=== PATIENT | female | born 1980 | race Two or more races ===

== ENCOUNTER 2020-10-07 00:09 | Emergency (ER) | payer OTHER ==
[~2020-10-07] VITALS: Ht 165.1 cm; Wt 165.9 kg
[2020-10-07] MEDS ORDERED: KETOROLAC 60 MG/2 ML VIAL. IM ONE (02:00)
--- NOTE | 2020-10-07 02:23 | RAD ---
XR KNEE 3 VIEWS_RT DATE: 10/07/2020 2:16 AM INDICATION: knee pain COMPARISON: None. FINDINGS: Bones: There is no evidence of acute fracture or dislocation. Joints: Mild tricompartmental degenerative changes There is no joint effusion. Miscellaneous: None. IMPRESSION: 1. No acute osseous abnormality. 2. Mild tricompartmental degenerative changes Electronically signed by: Jayy Fisher MD (10/07/2020 2:20 AM) ANASTASIYA
--- NOTE | 2020-10-07 02:30 | PHYS DOC ---
Past Medical History Past Surgical History: Other Additional Past Surgical Histo: OVARIAN CYST REMOVED FALLOPIAN TUBE & OVARY Smoking Status: Never Smoker Alcohol Use: Occasionally General Adult EDM: Chief Complaint: LOWER EXTREMITY SWELLING HPI: HPI: Patient is a 40 year old female presents with a chief complaint of right lower extremity pain. Patient states on she fell onto her right knee. States she had minimal discomfort on the days following. Patient states on Saturday pain increased in her right knee and has progressive become worse. . Patient Patients pain in her knee popliteal area with radiation up to her thigh. Review of Systems: Review of Systems: Constitutional: Denies fever or chills. [] Eyes: Denies change in visual acuity. [] HENT: Denies nasal congestion or sore throat. [] Respiratory: Denies cough or shortness of breath. [] Cardiovascular: Denies chest pain or edema. [] GI: Denies abdominal pain, nausea, vomiting, bloody stools or diarrhea. [] : Denies dysuria. [] Musculoskeletal: Denies back pain Positive joint pain. [Positive knee pain] Integument: Denies rash. [] Neurologic: Denies headache, focal weakness or sensory changes. [] Endocrine: Denies polyuria or polydipsia. [] Lymphatic: Denies swollen glands. [] Psychiatric: Denies depression or anxiety. [] Heart Score: C/O Chest Pain: N/A Risk Factors: Risk Factors: DM, Current or recent (<one month) smoker, HTN, HLP, family history of CAD, obesity. Risk Scores: Score 0 - 3: 2.5% MACE over next 6 weeks - Discharge Home Score 4 - 6: 20.3% MACE over next 6 weeks - Admit for Clinical Observation Score 7 - 10: 72.7% MACE over next 6 weeks - Early Invasive Strategies Current Medications: Current Medications Medications (Trade) Dose Ordered Sig/Abiel Start Time Stop Time Status Last Admin Dose Admin Ketorolac Tromethamine (Toradol Im) 60 mg 1X ONCE 10/07/20 02:00 10/07/20 02:03 DC Allergies: Allergies: Allergies Coded Allergies Type Severity Reaction Last Updated Verified Sulfa (Sulfonamide Antibiotics) Allergy Unknown 10/07/20 Yes fluconazole Allergy Unknown 10/07/20 Yes Physical Exam: PE: Constitutional: Well developed, well nourished, no acute distress, non-toxic appearance. [] HENT: Normocephalic, atraumatic, bilateral external ears normal, oropharynx moist, no oral exudates, nose normal. [] Eyes: PERRLA, EOMI, conjunctiva normal, no discharge. [] Neck: Normal range of motion, no tenderness, supple, no stridor. [] Cardiovascular:Heart rate regular rhythm, no murmur [] Lungs & Thorax: Bilateral breath sounds clear to auscultation [] Abdomen: Bowel sounds normal, soft, no tenderness, no masses, no pulsatile masses. [] Skin: Warm, dry, no erythema, no rash. [] Back: No tenderness, no CVA tenderness. [] Extremities: No tenderness, no cyanosis, no clubbing, ROM intact, no edema. [Pain with range of motion right knee tender to palpation primarily medial to patella. Popliteal tenderness] Neurologic: Alert and oriented X 3, normal motor function, normal sensory function, no focal deficits noted. [] Psychologic: Affect normal, judgement normal, mood normal. [] Current Patient Data: Vital Signs: Vital Signs Date Time Temp Pulse Resp B/P (MAP) Pulse Ox O2 Delivery O2 Flow Rate FiO2 10/07/20 00:12 98.4 81 20 177/97 96 Room Air 98.4 EKG: EKG: [] Radiology/Procedures: Radiology/Procedures: [] Impression: Xray knee no acute fracture US- Negative for DVT Course & Med Decision Making: Course & Med Decision Making Pertinent Labs and Imaging studies reviewed. (See chart for details) [] Dragon Disclaimer: Dragon Disclaimer: This electronic medical record was generated, in whole or in part, using a voice recognition dictation system. Departure Departure Impression: Primary Impression: Knee pain Disposition: HOME / SELF CARE / HOMELESS Condition: STABLE Referrals: CARLOS ALMANZAR MD (PCP) Patient Instructions: Knee Pain Scripts Oxycodone HCl/Acetaminophen (Percocet 5-325 mg Tablet) 1 Each Tablet 1 TAB PO QIDPRN MDD 4 Tablet(s) for 5 Days, #20 TAB 0 Refills Prov: RAJEEV DEWEY DO 10/07/20 RAJEEV DEWEY DO Oct 07, 2020 02:30
--- NOTE | 2020-10-07 03:01 | RAD ---
Exam: US DPLX VENOUS EXTREMITY LOWER RT Indication: leg pain pt concern about dvt Technique: Color-flow and pulsed wave duplex ultrasound with compression of venous structures of th e right lower extremity. Comparison: None Available. Findings: Duplex ultrasound with compression of the deep venous structures of the right lower extremi ty from the common femoral vein through the popliteal vein is negative for DVT. The posterior tibial and peroneal veins are segmentally visualized and patent where seen. Normal venous waveforms and augm entation are noted throughout. Impression: No evidence for DVT in the right lower extremity. Electronically signed by: Jayy Fisher MD (10/07/2020 2:59 AM) ANASTASIYA
[2020-10-07] MEDS ORDERED: HYDR-2759 PO (04:15)
[2020-10-07] MEDS ORDERED: OXYC-325 PO (04:17)
[2020-10-07 04:29] VITALS: BP 186/93
== END 2020-10-07 04:51 | disposition home or self-care (01) ==
LOC: ER 00:09
DX: M25.561 Pain in right knee (principal); Z88.2 Allergy status to sulfonamides; Z88.8 Allergy status to other drugs, medicaments and biological substances
CPT/HCPCS: 73562; 93971; 96372; 99284; J1885